=== PATIENT | male | born 1965 | race Caucasian/White ===

== ENCOUNTER 2018-05-21 21:46 | Emergency (ER) | payer OTHER ==
--- NOTE | 2018-05-21 22:38 | EDM.PDOCBH ---
ED HPI GENERAL MEDICAL PROBLEM - General Chief Complaint: Drug or Alcohol Abuse Stated Complaint: etoh Time Seen by Provider: 05/21/18 21:53 Source of Information: Reports: Patient, Old Records, RN, RN Notes Reviewed History Limitations: Reports: Intoxication - History of Present Illness INITIAL COMMENTS - FREE TEXT/NARRATIVE: Patient presents to the ED at [facility] stating he has been drinking alcohol and wants to quit. Patient was discharged from [place] today. He was admitted there for acute etoh intoxication. Patient has a long-standing history of etoh abuse and using hospital/ER facilities to detox him. Once discharge, patient drinks and then returns again to ED's. Patient was admitted to [facility] on 04/19 with a RIANA of 232.3, 04/22 RIANA of 279.9, 04/26 RIANA 233.2, RIANA of 202, and most recently 05/19 RIANA of 58.9. Patient was admitted on 05/19 and kept for 2 days in [place]. He was discharge this AM and states when he left, he started drinking. He came to [place] today to be with a relative. He states the relative is also a drinker so patient left stating "I dont want to be around alcoholics." Patient states he needs to get to [place] this Wednesday for inpatient treatment at the [facility]. [facility] gave him a taxi voucher dated 05/27 so he could get there. Patient denies any pain at this time. He states he does not have any complaints outside of being intoxicated. Onset: Today Back Pain Score (Numeric/FACES): 10 - Related Data Allergies Allergy/AdvReac Type Severity Reaction Status Date / Time codeine Allergy Other Verified 05/21/18 21:59 Fish Containing Products Allergy Other Verified 05/21/18 21:59 iodine Allergy Other Verified 05/21/18 21:59 Penicillins Allergy Other Verified 05/21/18 21:59 povidone-iodine Allergy Other Verified 05/21/18 21:59 [From Betadine] soap [From Betadine] Allergy Other Verified 05/21/18 21:59 Sulfa (Sulfonamide Allergy Other Verified 05/21/18 21:59 Antibiotics) Home Meds: Home Meds Acetaminophen [Non-Aspirin] 325 mg PO ASDIRECTED PRN 05/21/18 [History] Albuterol [Proventil HFA] 2 puff INH Q4H PRN 05/21/18 [History] Aspirin 81 mg PO DAILY 05/21/18 [History] Atenolol 25 mg PO DAILY 05/21/18 [History] Clopidogrel [Plavix] 75 mg PO DAILY 05/21/18 [History] Cyanocobalamin (Vitamin B-12) [Vitamin B-12] 250 mcg PO DAILY 05/21/18 [History] EPINEPHrine [Epipen] 0.3 mg IM ASDIRECTED PRN 05/21/18 [History] Folic Acid 1 mg PO DAILY 05/21/18 [History] Gabapentin [Neurontin] 400 mg PO TID 05/21/18 [History] Ibuprofen 400 mg PO Q6H PRN 05/21/18 [History] Levothyroxine [Sythroid] 100 mcg PO DAILY 05/21/18 [History] Mirtazapine [Remeron] 15 mg PO BEDTIME 05/21/18 [History] Nicotine [Habitrol] 14 mg TOP DAILY 05/21/18 [History] Nicotine [Nicotine Patch] 21 mg TD DAILY 05/21/18 [History] Ranitidine HCl [Zantac] 150 mg PO BID 05/21/18 [History] Thiamine [Vitamin B-1] 100 mg PO DAILY 05/21/18 [History] hydrOXYzine pamoate [Vistaril] 50 mg PO BID 05/21/18 [History] traZODone HCl [Trazodone HCl] 100 mg PO BEDTIME 05/21/18 [History] ED ROS GENERAL - Review of Systems Review Of Systems: See Below Constitutional: Denies: Fever, Chills, Weakness Respiratory: Denies: Shortness of Breath, Cough Cardiovascular: Denies: Chest Pain, Palpitations GI/Abdominal: Denies: Abdominal Pain, Nausea, Vomiting Skin: Reports: No Symptoms Neurological: Reports: No Symptoms Psychiatric: Denies: Agitation, Anxiety, Suicidal Ideation ED EXAM, BEHAVIORAL HEALTH - Physical Exam Exam: See Below Exam Limited By: Intoxication General Appearance: Alert, No Apparent Distress Head: Atraumatic, Normocephalic Neck: Supple Respiratory/Chest: No Respiratory Distress, Lungs Clear, Normal Breath Sounds Cardiovascular: Normal Peripheral Pulses, Regular Rate, Rhythm GI/Abdominal: Normal Bowel Sounds, Soft, Non-Tender Neurological: Alert, Disoriented to Time Psychiatric: Alert, Other (intoxicated) Skin Exam: Warm, Dry, Intact, Normal color COURSE, BEHAVIORAL HEALTH COMP - Course Vital Signs: Last Vital Signs Temp 36.8 C 05/21/18 21:55 Pulse 80 05/21/18 21:55 Resp 18 05/21/18 21:55 BP 105/68 05/21/18 21:55 Pulse Ox 96 05/21/18 21:55 Orders, Labs, Meds: Laboratory Tests 05/21/18 05/21/18 Range/Units 22:38 22:38 WBC 5.5 (4.0-10.0) x10^3/uL RBC 3.96 L (4.5-6.0) x10^6/uL Hgb 12.9 L (14.0-18.0) g/dL Hct 37.0 L (40.0-52.0) % MCV 93.4 H (78.0-93.0) fL MCH 32.6 H (26.0-32.0) pg MCHC 34.9 (32.0-36.0) g/dL RDW Coeff of [place] 13.2 (10.0-15.0) % Plt Count 162 (130-400) x10^3/uL Neut % (Auto) 57.9 (50.0-80.0) % Lymph % (Auto) 25.8 (25.0-50.0) % [place] % (Auto) 11.2 H (2.0-11.0) % Eos % (Auto) 4.4 H (0.0-4.0) % Baso % (Auto) 0.7 (0.2-1.2) % Sodium 138 (136-145) mmol/L Potassium 3.8 (3.5-5.1) mmol/L Chloride 103 (98-107) mmol/L Carbon Dioxide 25 (21-32) mmol/L Anion Gap 13.8 (10-20) mmol/L BUN 12 (7-18) mg/dL Creatinine 0.8 (0.70-1.30) mg/dL Est Cr Clr Drug Dosing TNP Estimated GFR (MDRD) > 60 Glucose 102 (74-106) mg/dL Calcium 8.7 (8.5-10.1) mg/dL Magnesium 2.0 (1.8-2.4) mg/dL Ethyl Alcohol 133 H (0-3) mg/dL Departure - Departure Time of Disposition: 23:26 Disposition: Home, Self-Care 01 Condition: Fair Clinical Impression: Chronic alcohol abuse Acute alcohol intoxication Qualifiers: Complication of substance-induced condition: uncomplicated Qualified Code(s): F10.929 - Alcohol use, unspecified with intoxication, unspecified - Discharge Information *PRESCRIPTION DRUG MONITORING PROGRAM REVIEWED*: Not Applicable *COPY OF PRESCRIPTION DRUG MONITORING REPORT IN PATIENT HUANG: Not Applicable Instructions: Alcohol Use Disorder, Chemical Dependency Referrals: Cornell Montejo MD [Ordering Only Provider] - Forms: ED Department Discharge Additional Instructions: 1. Stay well hydrated and rest 2. STOP DRINKING ALCOHOL, please find a chemical dependency program, there are people to help you 3. [facility] with [facility] 4. Use the taxi voucher given to you by [facility] - Problem List Review Problem List Initiated/Reviewed/Updated: Yes - Assessment/Plan Assessment:: Acute alcohol intoxication Plan: Patient is medically cleared to be discharged. Thoroughly and extensively discussed lab findings with patient. He did not seem interested in his results. He will be discharge as no acute emergency found. Will contact [facility] to see if they can assist the patient once discharge from this facility. Patient is in agreement with POC and wants to be discharged.
[2018-05-21 22:58] LABS: CHLORIDE,CL 103 mmol/L (98-107); SODIUM,NA 138 mmol/L (136-145)
[2018-05-21 22:59] LABS: ANION GAP 13.8 mmol/L (10-20)
== END 2018-05-21 23:37 | disposition home or self-care (01) ==
LOC: VM.ED 21:46
DX: F10.129 Alcohol abuse with intoxication, unspecified (principal); Z88.8 Allergy status to other drugs, medicaments and biological substances; Z88.0 Allergy status to penicillin; Z91.013 Allergy to seafood; Z88.2 Allergy status to sulfonamides; Z79.82 Long term (current) use of aspirin
CPT/HCPCS: 36415; 80048; 83735; 85025; 99284; G0480